=== PATIENT | female | born 2000 | race Caucasian/White ===

== ENCOUNTER 2022-01-29 20:05 | Emergency (ER) | payer SELFPAY ==
[2022-01-29] MEDS ORDERED: SMZ./TMP. 800/160 MG TABLET ONE (21:16)
[2022-01-29] MEDS ORDERED: DOXYCYCLINE 100 MG CAP PO ONE (21:16)
--- NOTE | 2022-01-29 21:43 | EDPHYS ---
Physician Documentation [facility] Name: Gabbie Chaney Age: 22 yrs Sex: Female : 2000 Arrival Date: 01/29/2022 Time: 20:10 Bed 9 Private MD: MARTIN Physician Ray Escalante HPI: 01/29 20:34 This 22 yrs old Female presents to ER via Ambulatory with complaints of Insect Bite. jmm 20:34 the patient presents with a swollen area of the left cheek. Onset: The symptoms/episode jmm began/occurred gradually. Possible cause(s): insect sting, spider bite. Associated signs and symptoms: Pertinent positives: swelling. Modifying factors: the symptoms are alleviated by nothing, the symptoms are aggravated by nothing. The patient has not experienced similar symptoms in the past. Historical: - Allergies: 20:21 PENICILLINS; ab2 - PMHx: 20:21 Asthma; Irritable bowel syndrome; ab2 - PSHx: 20:21 None; ab2 - Immunization history:: Adult Immunizations up to date. - Social history:: Smoking status: Reported history of juuling and/or vaping. ROS: 21:29 Constitutional: Negative for fever, chills, and weight loss, Cardiovascular: Negative jmm for chest pain, palpitations, and edema, Respiratory: Negative for shortness of breath, cough, wheezing, and pleuritic chest pain, Abdomen/GI: Negative for abdominal pain, nausea, vomiting, diarrhea, and constipation. 21:29 Skin: Positive for erythema. 21:29 All other systems are negative. Exam: 20:34 Constitutional: This is a well developed, well nourished patient who is awake, alert, jmm and in no acute distress. 20:34 Eyes: EOMI, no conjunctival erythema appreciated ENT: Moist Mucus Membranes Neck: Trachea midline, Supple Chest/axilla: Normal chest wall appearance and motion. Cardiovascular: Regular rate and rhythm. No edema appreciated Respiratory: Normal respirations, no respiratory distress appreciated Abdomen/GI: Non distended, soft Back: Normal ROM 20:34 Head/face: abscess noted to the left cheek, ttp, no purulent drainage appreciated. 20:34 Skin: erythema noted to the left cheek. 20:34 Neuro: Orientation: is normal, Mentation: is normal, Memory: is normal. 20:34 Psych: Behavior/mood is pleasant, cooperative. Vital Signs: 20:19 BP 143 / 78; Pulse 90; Resp 17; Temp 97.6; Pulse Ox 100% on R/A; Weight 63.5 kg; Height ab2 5 ft. 1 in. (154.94 cm); Pain 6/10; 20:19 Body Mass Index 26.45 (63.50 kg, 154.94 cm) ab2 MDM: 20:34 Patient medically screened. [facility] 21:42 Data reviewed: vital signs, nurses notes. Counseling: I had a detailed discussion with [facility] the patient and/or guardian regarding: the historical points, exam findings, and any diagnostic results supporting the discharge/admit diagnosis, the need for outpatient follow up, to return to the emergency department if symptoms worsen or persist or if there are any questions or concerns that arise at home. Administered Medications: 21:18 Drug: Bactrim (trimethoprim-sulfamethoxazole) (160 mg-800 mg (DS) 1 tablet Route: PO; jb4 22:05 Follow up: Response: No adverse reaction [facility] 21:18 Drug: Doxycycline 100 mg Route: PO; jb4 22:05 Follow up: Response: No adverse reaction [facility] Disposition Summary: 01/29/22 21:42 Discharge Ordered Location: Home [facility] Condition: Stable [facility] Diagnosis - Cutaneous Abscess of the Face [facility] Followup: [facility] - With: Jorje Mejia MD - When: 2 - 3 days - Reason: Recheck today's complaints, Continuance of care, Re-evaluation by your physician Discharge Instructions: - Discharge Summary Sheet [facility] - Skin Abscess [facility] Forms: - Medication Reconciliation Form [facility] - Thank You Letter [facility] - Antibiotic Education [facility] - Prescription Opioid Use [facility] Prescriptions: - Doxycycline Hyclate 100 mg Oral Tablet - take 1 tablet by ORAL route every 12 hours; 20 tablet; Refills: 0, Product [facility] Selection Permitted - Bactrim DS 800-160 mg Oral Tablet - take 1 tablet by ORAL route every 12 hours for 10 days; 20 tablet; Refills: 0, [facility] Product Selection Permitted - Fluconazole 150 mg Oral Tablet - take 1 tablet by ORAL route once daily; 1 tablet; Refills: 0, Product Selection [facility] Permitted Signatures: Jerzy Alexandra PA PA jmm Bryson, James, RN RN jb4 Russ Zepeda ab2 Corrections: (The following items were deleted from the chart) 20:21 20:21 Allergies: No Known Allergies; ab2 ab2
--- NOTE | 2022-01-29 21:43 | ER ---
Nurse's Notes [facility] Name: Gabbie Chaney Age: 22 yrs Sex: Female : 2000 Arrival Date: 01/29/2022 Time: 20:10 Bed 9 Private MD: Diagnosis: Cutaneous Abscess of the Face Presentation: 01/29 20:19 Chief complaint: Patient states: "For 2 days now I have had this bite on my face, I ab2 think its from a spider. This morning my face was swollen an it hurts down to my neck." Pt has bite noted on left cheek. Coronavirus screen: Vaccine status: Patient reports being unvaccinated. Client denies travel out of the [place] in the last 14 days. At this time, the client does not indicate any symptoms associated with coronavirus-19. Ebola Screen: Patient negative for fever greater than or equal to 101.5 degrees Fahrenheit, and additional compatible Ebola Virus Disease symptoms Patient denies exposure to infectious person. Patient denies travel to an Ebola-affected area in the 21 days before illness onset. No symptoms or risks identified at this time. Initial Sepsis Screen: Does the patient meet any 2 criteria? No. Patient's initial sepsis screen is negative. Does the patient have a suspected source of infection? No. Patient's initial sepsis screen is negative. Risk Assessment: Do you want to hurt yourself or someone else? Patient reports no desire to harm self or others. Onset of symptoms is unknown. 20:19 Method Of Arrival: Ambulatory ab2 20:19 Acuity: JULIANNA 4 ab2 Triage Assessment: 20:21 Bite description: bite sustained to left cheek by a spider, animal information: ab2 vaccination(s) is not applicable. General: Appears in no apparent distress. uncomfortable. General: Appears Behavior is calm, cooperative, appropriate for age. Pain: Complains of pain in left cheek. Neuro: Level of Consciousness is awake, alert, obeys commands, Oriented to person, place, time, situation, Appropriate for age Plasma Table Operator are equal bilaterally Moves all extremities. Respiratory: Airway is patent Respiratory effort is even, unlabored, Respiratory pattern is regular, symmetrical. Derm: Bite to left cheek. Historical: - Allergies: 20:21 PENICILLINS; ab2 - PMHx: 20:21 Asthma; Irritable bowel syndrome; ab2 - PSHx: 20:21 None; ab2 - Immunization history:: Adult Immunizations up to date. - Social history:: Smoking status: Reported history of juuling and/or vaping. Screenin:30 Abuse screen: Denies threats or abuse. Nutritional screening: No deficits noted. jb4 Tuberculosis screening: No symptoms or risk factors identified. Fall Risk None identified. Assessment: 21:30 General: Appears in no apparent distress. comfortable, Behavior is calm, cooperative, jb4 appropriate for age. Pain: Denies pain. Neuro: Level of Consciousness is awake, alert, obeys commands, Oriented to person, place, time, situation. Cardiovascular: Patient's skin is warm and dry. Respiratory: Airway is patent Respiratory effort is even, unlabored, Respiratory pattern is regular, symmetrical. GI: No signs and/or symptoms were reported involving the gastrointestinal system. : No signs and/or symptoms were reported regarding the genitourinary system. EENT: No signs and/or symptoms were reported regarding the EENT system. Derm: Skin is intact, Skin is pink, warm \\T\\ dry. Musculoskeletal: Circulation, motion, and sensation intact. Range of motion: intact in all extremities. Vital Signs: 20:19 BP 143 / 78; Pulse 90; Resp 17; Temp 97.6; Pulse Ox 100% on R/A; Weight 63.5 kg; Height ab2 5 ft. 1 in. (154.94 cm); Pain 6/10; 20:19 Body Mass Index 26.45 (63.50 kg, 154.94 cm) ab2 ED Course: 20:10 Patient arrived in ED. bp1 20:21 Triage completed. ab2 20:22 Arm band placed on right wrist. ab2 20:29 Jerzy Alexandra PA is PHCP. jmm 20:29 Ray Escalante MD is Attending Physician. jmm 20:29 Maximilian Jaffe, RN is Primary Nurse. jb4 21:30 Patient has correct armband on for positive identification. jb4 21:42 Jorje Mejia MD is Referral Physician. jmm 22:04 No provider procedures requiring assistance completed. Patient did not have IV access jb4 during this emergency room visit. Administered Medications: 21:18 Drug: Bactrim (trimethoprim-sulfamethoxazole) (160 mg-800 mg (DS) 1 tablet Route: PO; jb4 22:05 Follow up: Response: No adverse reaction jb4 21:18 Drug: Doxycycline 100 mg Route: PO; jb4 22:05 Follow up: Response: No adverse reaction jb4 Outcome: 21:42 Discharge ordered by . zach 22:04 Discharged to home ambulatory. jb4 22:04 Condition: stable 22:04 Discharge instructions given to patient, Instructed on discharge instructions, follow up and referral plans. medication usage, Demonstrated understanding of instructions, follow-up care, medications, Prescriptions given X 3. 22:05 Patient left the ED. jb4 Signatures: Jerzy Alexandra PA PA jmm Bryson, James, LEISA RN jb4 Lynda Becker Alexis ab2 Corrections: (The following items were deleted from the chart) 20:21 20:21 Allergies: No Known Allergies; ab2 ab2
[2022-01-29 22:11] VITALS: BP 143/78; TEMP 97.6; O2SAT 100
== END 2022-01-29 22:05 | disposition home or self-care (01) ==
LOC: ER 20:05
DX: L02.01 Cutaneous abscess of face (principal); Z88.0 Allergy status to penicillin
CPT/HCPCS: 99283